=== PATIENT | male | born 1955 | race Caucasian/White ===

== ENCOUNTER 2016-06-15 00:12 | Observation (INO) | payer OTHER ==
[2016-06-15] MEDS ORDERED: ASPIRIN 81 MG CHEWABLE TAB PO ONE (00:21)
[2016-06-15] MEDS ORDERED: NS 1,000 ML IV ONE (00:21)
--- NOTE | 2016-06-15 00:21 | EDPHY ---
H & P Stated Complaint: CP x 1 1/2 hours HPI/ROS: HPI CHIEF COMPLAINT: Chest Pain HISTORY OF PRESENT ILLNESS: This patient very pleasant 60-year-old male, significant past medical history for AFib, not on any anticoagulation except baby aspirin daily, pacemaker due to bradycardia, presents emergency room with chest discomfort left side of his chest. He describes it as a pinching sensation he tells me that he was trying to go to sleep around 1045PM and developed this discomfort in his chest it has been constant since. No radiation pain specifically no arm pain jaw pain neck pain nausea vomiting. Denies shortness of breath denies pleuritic pain denies recent illness or cough. Past Medical History: Bradycardia, AFib Past Surgical History: Right-sided chest pacemaker Social History: Denies use of drugs alcohol tobacco products Family History: Significant for coronary artery disease and an MD in his dad age 38 ROS REVIEW OF SYSTEMS: A comprehensive 10 point review of systems is otherwise negative aside from elements mentioned in the history of present illness. Exam Constitutional triage nursing summary reviewed, vital signs reviewed, awake/ alert. Eyes normal conjunctivae and sclera, EOMI, PERRLA. HENT normal inspection, atraumatic, moist mucus membranes, no epistaxis, neck supple/ no meningismus, no raccoon eyes. Respiratory clear to auscultation bilaterally, normal breath sounds, no respiratory distress, no wheezing. Cardiovascular rate normal, regular rhythm, no murmur, no edema, distal pulses normal. Gastrointestinal soft, non-tender, no rebound, no guarding, normal bowel sounds, no distension, no pulsatile mass. Genitourinary no CVA tenderness. Musculoskeletal no midline vertebral tenderness, full range of motion, no calf swelling, no tenderness of extremities, no meningismus, good pulses, neurovascularly intact. Skin pink, warm, & dry, no rash, skin atraumatic. Neurologic awake, alert and oriented x 3, AAOx3, moves all 4 extremities equally, motor intact, sensory intact, CN II-XII intact, normal cerebellar, normal vision, normal speech. Psychiatric normal mood/affect. Heme/Lymph/Immune no lymphadenopathy. 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 Received a dose of nitroglycerin to see if this improves his chest discomfort. Re-evaluation: EKG interpretation by me on record in [employer] system. Impression time of EKG 12:30 a.m., this is this atrially paced rhythm rate of [address] depression noted in the anterior lateral leads. Otherwise no acute ST elevation when compared his EKG to his old EKGs very similar morphology specifically it looks very similar to the EKG done 11/19/2009. 0132: re-examination at this time is patient is resting comfortably no acute distress, he is chest pain-free. His troponin is negative. D-dimer negative. Chest x-ray unremarkable EKG does not show acute ischemia. He did feel much better after nitroglycerin. I also have noted that on cook helper dessert his heart rate has went down to 40. His pacemaker supposedly set at 60. I relayed this to the hospitalist service. They will evaluate his pacemaker as well. Patient be admitted to PCU due to pacemaker, bradycardia, chest discomfort. He is chest pain-free at this time. Improved with nitroglycerin. Source: Patient, EMS - Personal History Current Tetanus/Diphtheria Vaccine: Yes - Medical/Surgical History Hx Asthma: No Hx Chronic Respiratory Disease: No Hx Diabetes: No Hx Cardiac Disease: Yes Hx Renal Disease: No Hx Cirrhosis: No Hx Alcoholism: No Hx HIV/AIDS: No Hx Splenectomy or Spleen Trauma: No Other PMH: PMHx: Afib. PSHx: pacer, appy - Social History Smoking Status: Never smoked Constitutional: Initial Vital Signs Temperature (C) 36.4 C 06/15/16 00:14 Heart Rate 63 06/15/16 00:14 Respiratory Rate 16 06/15/16 00:14 Blood Pressure 146/95 H 06/15/16 00:14 O2 Sat (%) 95 06/15/16 00:14 O2 Delivery Mode Room Air Allergies/Adverse Reactions: No Known Allergies Allergy (Unverified 11/18/09 15:29) Home Medications: Medication Instructions Recorded ASPIRIN 06/15/16 Medical Decision Making - Data Points Laboratory Results: Laboratory Results 06/15/16 00:35 06/15/16 00:35 06/15/16 00:35 WBC 6.89 10^3/uL (3.80-9.50) RBC 5.23 10^6/uL (4.40-6.38) Hgb 16.5 g/dL (13.7-17.5) Hct 46.8 % (40.0-51.0) MCV 89.5 fL (81.5-99.8) MCH 31.5 pg (27.9-34.1) MCHC 35.3 g/dL (32.4-36.7) RDW 12.2 % (11.5-15.2) Plt Count 215 10^3/uL (150-400) MPV 9.2 fL (8.7-11.7) Neut % (Auto) 46.3 % (39.3-74.2) Lymph % (Auto) 38.8 % (15.0-45.0) [place] % (Auto) 12.9 % (4.5-13.0) Eos % (Auto) 1.5 % (0.6-7.6) Baso % (Auto) 0.4 % (0.3-1.7) Nucleat RBC Rel Count 0.0 % (0.0-0.2) Absolute Neuts (auto) 3.19 10^3/uL (1.70-6.50) Absolute Lymphs (auto) 2.67 10^3/uL (1.00-3.00) Absolute Monos (auto) 0.89 H 10^3/uL (0.30-0.80) Absolute Eos (auto) 0.10 10^3/uL (0.03-0.40) Absolute Basos (auto) 0.03 10^3/uL (0.02-0.10) Absolute Nucleated RBC 0.00 10^3/uL (0-0.01) Immature Gran % 0.1 % (0.0-1.1) Immature Gran # 0.01 10^3/uL (0.00-0.10) PT 12.5 SEC (12.0-15.0) INR 0.94 (0.83-1.16) APTT 29.5 SEC (23.0-38.0) D-Dimer < 0.27 ug/mLFEU (0.00-0.50) Sodium 143 mEq/L (134-144) Potassium 4.0 mEq/L (3.5-5.2) Chloride 107 mEq/L (97-110) Carbon Dioxide 24 mEq/l (22-31) Anion Gap 12 mEq/L (8-16) BUN 23 mg/dL (7-23) Creatinine 1.2 mg/dL (0.7-1.3) Estimated GFR > 60 Glucose 94 mg/dL (70-100) Calcium 10.0 mg/dL (8.5-10.4) Magnesium 2.1 mg/dL (1.6-2.3) Total Bilirubin 0.8 mg/dL (0.1-1.4) Conjugated Bilirubin 0.5 mg/dL (0.0-0.5) Unconjugated Bilirubin 0.3 mg/dL (0.0-1.1) AST 35 IU/L (17-59) ALT 41 IU/L (21-72) Alkaline Phosphatase 73 IU/L (38-126) Creatine Kinase 128 IU/L (0-224) CK-MB (CK-2) Fraction 2.33 ng/mL (0-3.19) Troponin I 0.016 ng/mL (0-0.034) NT-Pro-B Natriuret Pep 44 pg/mL (0-125) Total Protein 7.5 g/dL (6.3-8.2) Albumin 4.4 g/dL (3.5-5.0) Lipase 238.0 IU/L (23-300) Medications Given: Discontinued Medications Aspirin (Aspirin) 324 mg PO EDNOW ONE Stop: 06/15/16 00:22 Last Admin: 06/15/16 00:44 Dose: Not Given Sodium Chloride (Ns) 1,000 mls @ 0 mls/hr IV ONCE ONE PRN Reason: As Directed Stop: 06/15/16 00:22 Last Admin: 06/15/16 00:47 Dose: 1,000 mls Nitroglycerin (Nitrostat) 0.4 mg SL EDNOW ONE Stop: 06/15/16 00:37 Last Admin: 06/15/16 00:44 Dose: 1 tab Departure - Departure Disposition: [facility] Inpatient Acute Clinical Impression: Bradycardia Chest pain Qualifiers: Chest pain type: unspecified Qualifier Code: (R07.9) Chest pain, unspecified Condition: Good Referrals: IN STATE,. [Primary Care Provider] - As per Instructions
--- NOTE | 2016-06-15 00:33 | CPEKG ---
Heart Rate: 60 RR Interval: 1000 P-R Interval: 204 QRSD Interval: 88 QT Interval: 452 QTC Interval: 452 QRS [place]: 17 T Wave [place]: 44 EKG Severity - ABNORMAL ECG - EKG Impression: ATRIAL-PACED RHYTHM EKG Impression: MINIMAL ST DEPRESSION, ANTEROLATERAL LEADS Electronically Signed By: Adan Avalos 15-Jun-2016 07:16:34
[2016-06-15] MEDS ORDERED: NITROGLYCERIN 0.4 MG BTL SL ONE (00:36)
[2016-06-15 00:42] LABS: % IMMATURE GRANULYOCYTES 0.1 % (0.0-1.1); ABSOLUTE IMMATURE GRANULOCYTES 0.01 10^3/uL (0.00-0.10); ADD DIFF? NO; ADD MORPH? NO; ADD SCAN? NO; ATYPICAL LYMPHOCYTE FLAG 10 (0-99); FRAGMENT RBC FLAG 0 (0-99); HEMATOCRIT 46.8 % (40.0-51.0); HEMOGLOBIN 16.5 g/dL (13.7-17.5); LEFT SHIFT FLG 0 (0-99); LIPEMIA HEMOLYSIS FLAG 90 (0-99); MEAN CELL HEMOGLOBIN 31.5 pg (27.9-34.1); MEAN CELL HEMOGLOBIN CONCENTR. 35.3 g/dL (32.4-36.7); MEAN CELL VOLUME 89.5 fL (81.5-99.8); MEAN PLATELET VOLUME 9.2 fL (8.7-11.7); PLATELET CLUMPS FLAG 0 (0-99); PLATELET COUNT 215 10^3/uL (150-400); RED BLOOD CELL COUNT 5.23 10^6/uL (4.40-6.38); RED CELL DISTRIBUTION WIDTH 12.2 % (11.5-15.2)
[2016-06-15 00:56] LABS: INR 0.94 (0.83-1.16); PROTIME(PATIENT) 12.5 SEC (12.0-15.0)
[2016-06-15 00:57] LABS: ALANINE AMINOTRANSFERASE 41 IU/L (21-72); ALBUMIN 4.4 g/dL (3.5-5.0); ALKALINE PHOSPHATASE 73 IU/L (38-126); ANION GAP 12 mEq/L (8-16); ASPARTATE AMINOTRANSFERASE 35 IU/L (17-59); BILIRUBIN,TOTAL 0.8 mg/dL (0.1-1.4); BILIRUBIN-CONJUGATED 0.5 mg/dL (0.0-0.5); BILIRUBIN-UNCONJUGATED 0.3 mg/dL (0.0-1.1); CARBON DIOXIDE 24 mEq/l (22-31); CHLORIDE 107 mEq/L (97-110); CREATININE 1.2 mg/dL (0.7-1.3); GLOMERULAR FILTRATION RATE > 60; GLUCOSE 94 mg/dL (70-100); MAGNESIUM 2.1 mg/dL (1.6-2.3); SODIUM 143 mEq/L (134-144); TOTAL PROTEIN 7.5 g/dL (6.3-8.2)
[2016-06-15 01:06] LABS: APTT 29.5 SEC (23.0-38.0)
[2016-06-15 01:09] LABS: CREATINE KINASE-MB FRACTION 2.33 ng/mL (0-3.19); TROPONIN I 0.016 ng/mL (0-0.034)
[2016-06-15] MEDS ORDERED: ACETAMINOPHEN 325 MG TAB PO PRN (01:52)
[2016-06-15] MEDS ORDERED: NITROGLYCERIN 0.4 MG BTL SL PRN (01:52)
[2016-06-15] MEDS ORDERED: ONDANSETRON 4 MG/2 ML VIAL IVP PRN (01:52)
[2016-06-15] MEDS ORDERED: ONDANSETRON DISINTEGRATING 4 MG TAB PO PRN (01:52)
[2016-06-15 01:59] VITALS: PULSE 60
--- NOTE | 2016-06-15 02:25 | CPEKG ---
Heart Rate: 60 RR Interval: 1000 P-R Interval: 208 QRSD Interval: 86 QT Interval: 432 QTC Interval: 432 QRS Jack: 15 T Wave Jack: 26 EKG Severity - ABNORMAL ECG - EKG Impression: ATRIAL-PACED RHYTHM EKG Impression: LOW VOLTAGE IN FRONTAL LEADS Electronically Signed By: Adan Avalos 15-Jun-2016 07:16:34
--- NOTE | 2016-06-15 05:41 | PDGENHP ---
History and Physical - Chief Complaint chest pain - History of Present Illness patient is a 60-year-old male with history of sick sinus syndrome s/p PPM placement (2009) who presents to the ED complaining of left-sided chest pain. Patient states symptoms started just before going to sleep this evening, describes as a pinching type sensation in his left chest, nonradiating, not associated with lightheadedness, nausea, palpitations or shortness of breath. He has never experienced this type of pain before. He reports having eaten dinner at around 5 or 6:00 p.m., and then had another snack at around 10:00 p.m. just prior to bed, but he does not feel pain is related to heartburn or GERD type symptoms. In addition, patient does note that for the past 2 weeks or so he has been feeling dizziness with abrupt standing or with excessive physical exertion. He denies any associated chest pain, shortness of breath or palpitations. he also denies any recent fevers, chills, cough, congestion, nausea, vomiting, diarrhea. Upon arrival to the ED patient was afebrile hemodynamically stable. Labs were within normal limits, and stroke and D-dimer were both negative. EKG showed atrially paced rhythm without any evidence of ischemic changes. He was given aspirin and sublingual nitro and symptoms improved. He was then admitted to the hospital service for further management. History Information - Allergies/Home Medication List Allergies/Adverse Reactions: No Known Allergies Allergy (Unverified 11/18/09 15:29) Home Medications: ASPIRIN 06/15/16 [Last Taken Unknown] I have personally reviewed and updated: family history, medical history, social history, surgical history - Past Medical History Additional medical history: Sick sinus syndrome - Surgical History Additional surgical history: ppm placement. 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 Review of Systems ROS: 10pt was reviewed & negative except for what was stated in HPI & below Physical Exam Temp Pulse Resp BP Pulse Ox 36.6 C 60 18 130/85 H 93 06/15/16 01:58 06/15/16 02:54 06/15/16 02:54 06/15/16 02:54 02/07/17 02:54 Constitutional: no apparent distress, appears nourished, not in pain Eyes: PERRL, anicteric sclera, EOMI Ears, Nose, Mouth, Throat: moist mucous membranes, hearing normal, ears appear normal, no oral mucosal ulcers Cardiovascular: regular rate and rhythym, no murmur, rub, or gallop, pulses symmetric bilaterally, No JVD, No edema Peripheral Pulses: 2+: dorsalis-pedis (R), dorsalis-pedis (L) Respiratory: no respiratory distress, no rales or rhonchi, clear to auscultation Gastrointestinal: normoactive bowel sounds, soft, non-tender abdomen, no palpable masses Genitourinary: no bladder fullness, no bladder tenderness Skin: warm, normal color, no rashes or abrasions, no fluctuance, no induration, No mottled Musculoskeletal: full muscle strength, no muscle tenderness, normal joint ROM, no joint effusions Neurologic: AAOx3, sensation intact bilaterally, CN II-XII Intact, No weakness, No numbness Psychiatric: interacting appropriately, not anxious, not encephalopathic, thought process linear Lab Data & Imaging Review 06/15/16 00:35 06/15/16 00:35 WBC 6.89 10^3/uL (3.80-9.50) 06/15/16 00:35 RBC 5.23 10^6/uL (4.40-6.38) 06/15/16 00:35 Hgb 16.5 g/dL (13.7-17.5) 06/15/16 00:35 Hct 46.8 % (40.0-51.0) 06/15/16 00:35 MCV 89.5 fL (81.5-99.8) 06/15/16 00:35 MCH 31.5 pg (27.9-34.1) 06/15/16 00:35 MCHC 35.3 g/dL (32.4-36.7) 06/15/16 00:35 RDW 12.2 % (11.5-15.2) 06/15/16 00:35 Plt Count 215 10^3/uL (150-400) 06/15/16 00:35 MPV 9.2 fL (8.7-11.7) 06/15/16 00:35 Neut % (Auto) 46.3 % (39.3-74.2) 06/15/16 00:35 Lymph % (Auto) 38.8 % (15.0-45.0) 06/15/16 00:35 [place] % (Auto) 12.9 % (4.5-13.0) 06/15/16 00:35 Eos % (Auto) 1.5 % (0.6-7.6) 06/15/16 00:35 Baso % (Auto) 0.4 % (0.3-1.7) 06/15/16 00:35 Nucleat RBC Rel Count 0.0 % (0.0-0.2) 06/15/16 00:35 Absolute Neuts (auto) 3.19 10^3/uL (1.70-6.50) 06/15/16 00:35 Absolute Lymphs (auto) 2.67 10^3/uL (1.00-3.00) 06/15/16 00:35 Absolute Monos (auto) 0.89 10^3/uL (0.30-0.80) H 06/15/16 00:35 Absolute Eos (auto) 0.10 10^3/uL (0.03-0.40) 06/15/16 00:35 Absolute Basos (auto) 0.03 10^3/uL (0.02-0.10) 06/15/16 00:35 Absolute Nucleated RBC 0.00 10^3/uL (0-0.01) 06/15/16 00:35 Immature Gran % 0.1 % (0.0-1.1) 06/15/16 00:35 Immature Gran # 0.01 10^3/uL (0.00-0.10) 06/15/16 00:35 PT 12.5 SEC (12.0-15.0) 06/15/16 00:35 INR 0.94 (0.83-1.16) 06/15/16 00:35 APTT 29.5 SEC (23.0-38.0) 06/15/16 00:35 D-Dimer < 0.27 ug/mLFEU (0.00-0.50) 06/15/16 00:35 Sodium 143 mEq/L (134-144) 06/15/16 00:35 Potassium 4.0 mEq/L (3.5-5.2) 06/15/16 00:35 Chloride 107 mEq/L (97-110) 06/15/16 00:35 Carbon Dioxide 24 mEq/l (22-31) 06/15/16 00:35 Anion Gap 12 mEq/L (8-16) 06/15/16 00:35 BUN 23 mg/dL (7-23) 06/15/16 00:35 Creatinine 1.2 mg/dL (0.7-1.3) 06/15/16 00:35 Estimated GFR > 60 06/15/16 00:35 Glucose 94 mg/dL (70-100) 06/15/16 00:35 Calcium 10.0 mg/dL (8.5-10.4) 06/15/16 00:35 Magnesium 2.1 mg/dL (1.6-2.3) 06/15/16 00:35 Total Bilirubin 0.8 mg/dL (0.1-1.4) 06/15/16 00:35 Conjugated Bilirubin 0.5 mg/dL (0.0-0.5) 06/15/16 00:35 Unconjugated Bilirubin 0.3 mg/dL (0.0-1.1) 06/15/16 00:35 AST 35 IU/L (17-59) 06/15/16 00:35 ALT 41 IU/L (21-72) 06/15/16 00:35 Alkaline Phosphatase 73 IU/L (38-126) 06/15/16 00:35 Creatine Kinase 128 IU/L (0-224) 06/15/16 00:35 CK-MB (CK-2) Fraction 2.33 ng/mL (0-3.19) 06/15/16 00:35 Troponin I 0.016 ng/mL (0-0.034) 06/15/16 00:35 NT-Pro-B Natriuret Pep 44 pg/mL (0-125) 06/15/16 00:35 Total Protein 7.5 g/dL (6.3-8.2) 06/15/16 00:35 Albumin 4.4 g/dL (3.5-5.0) 06/15/16 00:35 Lipase 238.0 IU/L (23-300) 06/15/16 00:35 Visualized and Interpreted Chest x-ray results: Yes Chest X-Ray results: no infiltrate, normal Visualized and Interpreted EKG results: Yes EKG Interpretation: Positive for: normal sinsus rhythm ( Atrial paced, no st/t wave changes) Assessment & Plan Assessment: patient is a 60-year-old male with history of sick sinus syndrome S/P a ppm presents ED with complaint of acute onset left-sided chest pain. Plan: # chest pain patient's risk factors for cardiac chest pain include family history of early CAD in his father. Initial EKG and troponin are negative for evidence of ischemia. Patient reports last stress test was several years ago and normal. Will rule out ACS with serial troponins and EKGs, will interrogate patient's ppm to evaluate for any arrhythmias, and obtain stress test in a.m. Differential also includes GERD/gastritis. # dispo: admit to observation unit for acute chest pain. # full code
[2016-06-15 08:12] VITALS: RESP 19
--- NOTE | 2016-06-15 08:36 | DX ---
Portable Chest, 00 29 a.m. History: Chest pain Comparison: November 19, 2009 Findings: Lungs clear. Heart size is normal for portable technique. There is possibly mild pulmonary venous hypertension. There are no pleural effusions, Wal[place] B lines or pulmonary edema. A right chest wall pacer device and associated bipolar pacer leads remain in place. There are stable old healed le ft posterior rib fracture deformities. Impression: Possibly mild pulmonary venous hypertension. A routine PA and lateral chest would be bett er suited to evaluate the cardiothoracic equilibrium.
[2016-06-15] MEDS ORDERED: REGADENOSON 0.4 MG/5 ML SYR IVP ONE (10:48)
[2016-06-15 12:10] VITALS: BP 123/80; TEMP 98; O2SAT 97
--- NOTE | 2016-06-15 12:45 | NM ---
Nuclear Medicine Myocardial Perfusion Scan Clinical History: 60-year-old male admitted this morning with left-sided chest pain. He has a history of sick sinus syndrome, and had a pacemaker placed in 2009. The patient's first 2 serum troponin lev els were negative. A third level is currently pending. Rule out myocardial ischemia. Radiopharmaceutical: 11 mCi of IV technetium 99m sestamibi (rest portion), and 25.2 mCi of IV technet ium 99m sestamibi (stress portion). Medical Pharmaceutical: 0.4 mg of IV Lexiscan in 5 mL. Technique: After the respective rest and stress sequences, images were acquired tomographically and r econstructed along the standard cardiac axes. The study was gated and reviewed on the PACS computer w orkstation using [employer] [facility] software. Comparison Study: None. Findings: The post-stress and rest sequences demonstrate normal perfusion of the septum, anterior wal l, and the lateral wall; however, the inferior wall has fixed diminished attenuation, in part by diap hragmatic attenuation. There is no additional perfusion at rest to suggest myocardial ischemia. The l eft ventricular cavity size is normal, and contractility appears relatively normal. The computer gene rated LVEF is calculated at 56%. Impression: There is no scintigraphic evidence of myocardial ischemia (with the caveat that there is some diaphragmatic attenuation of the inferior wall). Contractility appears normal, with an LVEF of 5 6%. Results were discussed with Dr. Alejo Mckeon. A test result has been communicated to a licensed care provider and documented in the [employer] Critical Result system on 06/15/2016 12:33, Message ID [id number].
--- NOTE | 2016-06-15 13:32 | CPR ---
[f rep st] NONINVASIVE CARDIAC PROCEDURE REPORT DATE OF PROCEDURE: 06/15/2016 PROCEDURE: Lexiscan Stress Test. REASON FOR TEST: 1. Chest pain. 2. Family history of coronary artery disease. 3. Father with [place] at age 38. 4. Mild hypertension. FINDINGS: Resting EKG shows a regular atrial paced rhythm at a rate of 60. He is asymptomatic. Res ting blood pressure 124/84, resting heart rate 60, oxygen saturation 95%. STRESS PORTION LEXISCAN STRESS TEST: Lexiscan was injected rapidly at 10:51 a.m., followed by saline flush. Cardiolite was then injected, followed by saline flush protocol. He did experience flushing and chest pressure. Blood pressure 112/80, heart rate 73-98. Oxygen saturation 98%. RECOVERY: He spontaneously recovered. Caffeine was given, and his chest pressure and flushing resol karen. Resting blood pressure 122/80. Recovery heart rate 98, oxygen saturation 98. At this time, he is asymptomatic. He is stable for imaging. /[id number]/MODL
--- NOTE | 2016-06-15 16:17 | PDDCSUM ---
Discharge Summary Discharge Summary: DISCHARGE DIAGNOSES: 1. CHEST PAIN AT REST, RESOLVED 2. RULED OUT [place] 3. NO CHF 4. NO ABNORMALITY ON MYOCARD. PERFUSION IMAGING 5. PACEMAKER COMPLICATIONS: NONE HOSPITAL COURSE: No recurrence of presenting pain. No arrythmia or chf. No other new symptoms. All troponins negative and stress testing w terra rene. He had numerous questions about his pacer which were answered but I do not have results of his interrogations; he is referred to Dr Metcalf for further help with his questions. MEDICATIONS CHANGES: NONE
[2016-06-16] MEDS ORDERED: CHOLECALCIFEROL VIT D3 1,000 UNITS TAB PO SCH (09:00)
[2016-06-16] MEDS ORDERED: ASPIRIN 81 MG CHEWABLE TAB PO SCH (09:00)
== END 2016-06-15 15:42 | disposition home or self-care (01) ==
LOC: F1N 02:26
PROVIDERS: ADMIT Internal Medicine; ATTEND Internal Medicine
DX: R07.9 Chest pain, unspecified (principal); I49.5 Sick sinus syndrome; Z95.0 Presence of cardiac pacemaker; I48.91 Unspecified atrial fibrillation; I10 Essential (primary) hypertension; Z79.82 Long term (current) use of aspirin; Z82.49 Family history of ischemic heart disease and other diseases of the circulatory system
CPT/HCPCS: 71010; 78452; 93005; 93017; A9500; G0378; J2785

== ENCOUNTER → 2017-04-18 | Outpatient (CLI) | payer OTHER | LOC: FIMAGING 13:49 | PROVIDERS: ATTEND Internal Medicine Cardiovascular Disease | DX: Z95.0 Presence of cardiac pacemaker (principal) ==

== ENCOUNTER → 2017-08-30 | Day surgery (SDC) | payer OTHER ==
[~2017-08-30] MED LIST: ASPIRIN 81 MG CHEWABLE TAB PO SCH; BACITRACIN IRRIGATION/NS 50,000 UNITS/1,000 ML BTL IRR ONE; BUPIVACAINE 0.5% 30 ML SDV ONE; CHOLECALCIFEROL VIT D3 1,000 UNITS TAB PO SCH; DIAZEPAM 5 MG TAB PO ONE; LIDOCAINE 1% 300 MG/30 ML SDV ONE; MIDAZOLAM 2 MG/2 ML VIAL ONE; NS 1,000 ML IV ONE; ceFAZolin 2 GM/SWFI 2 GM/20 ML SYR IVP ONE; diphenhydrAMINE 25 MG CAP PO ONE; fentaNYL 100 MCG/2 ML INJ ONE
--- NOTE | 2017-08-30 09:25 | CPEKG ---
Heart Rate: 54 RR Interval: 1111 P-R Interval: 196 QRSD Interval: 88 QT Interval: 460 QTC Interval: 436 QRS [place]: 69 T Wave [place]: 39 EKG Severity - ABNORMAL ECG - EKG Impression: ATRIAL-PACED RHYTHM EKG Impression: UNCHANGED IN COMPARISON TO PRIOR Electronically Signed By: Daniel Wong 30-Aug-2017 09:29:43
[2017-08-30 09:46] LABS: PLATELET COUNT 201 10^3/uL (150-400)
[2017-08-30 09:59] LABS: INR 0.97 (0.83-1.16); PROTIME(PATIENT) 13.1 SEC (12.0-15.0)
--- NOTE | 2017-08-30 12:23 | PDGENHP ---
History & Physical Chief Complaint: pacemaker generator is at travon Relevant Physical Exam: [id number] rrr cta ao3 Cardiorespiratory Assessment: RA lead is normal. RV lead is suboptimal, threshold 3.5 V 1.5 ms. He paces RV 5% of the time. No unipolar capture. We discussed pros and cons of new RV lead vs. generator change alone. PM was implanted for sick sinus syndrome. Will proceed with generator change only. He understands that he may need a new RV lead earlier than next generator change , we may elect to pace him AAI at that time.
--- NOTE | 2017-08-30 12:23 | PDPROPOC ---
Sedation Plan of Care Sedation Plan of Care: vital signs stable, mental status noted, patient educated of risks, benefits, alternatives, patient can tolerate sedation ASA Classification: ASA 1 Planned drugs: fentanyl, midazolam Mallampati Score: Class 1 Mallampati Reference Image: Patient passed 3-3-2 rule?: Yes
--- NOTE | 2017-08-30 13:56 | EPPROC ---
Electrophysiology Procedure Note: PROCEDURE PERFORMED: 1. AV Pacemaker generator change INDICATION: Pacemaker generator at ANGELA Bradycardia PROCEDURE NOTE: Patient presented to the cardiac catheterization laboratory in a fasting, postabsorptive state. EP RN administered sedation The R infraclavicular area was prepped and draped in the usual sterile fashion. Lidocaine plus bupivacaine was used for local anesthesia. Using a combination of blunt and sharp dissection and electrocautery, the dissection was carried down to the prepectoral fascia and the existing pacemaker pocket was opened. The pacemaker generator was disconnected from the leads and the lead thresholds and impedance were checked. The pacemaker pocket was copiously irrigated with antibiotic solution. The pocket was again inspected for any bleeding. The leads were attached to the pacemaker securely. The pacemaker was inserted into the pocket and secured in place with a nonabsorbable suture. RV lead is suboptimal but functional with good sensing and impedance. Prior to procedure we discussed this and patient & I opted not to add an additional RV lead at this time. RV pacing is 5% of the time. The pacemaker pocket was closed in 3 layers with absorbable monocryl sutures and shayla. Appropriate dressing was applied. The patient left the cardiac catheterization laboratory in stable condition. Serial Numbers: 1. Device SJM Assurity MRI SN [id number] 2. Atrial Lead Medtronic 4076-45 [id number] 3. Ventricular Lead Medtronic 4076-52 [id number] Stimulation Thresholds & Impedance Measurements: 1. Atrial Lead P 1.7 mV 480 ohm 0.5 V 0.5 ms 2. Ventricular Lead R 10.2 mV 649 ohm 3.2 V @ 1.5 ms Cirilo Pacing Parameters 1. Pacing mode DDDR 2. Lower rate 60 ppm 3. Upper tracking rate 130 ppm 4. Upper sensor rate 130 ppm Patient Problems: Problems Problem Status Onset Bradycardia Acute Chest pain Acute
--- NOTE | 2017-08-30 15:03 | CPEKG ---
Heart Rate: 66 RR Interval: 909 P-R Interval: 184 QRSD Interval: 84 QT Interval: 436 QTC Interval: 457 QRS [place]: 42 T Wave [place]: 40 EKG Severity - ABNORMAL ECG - EKG Impression: ATRIAL-PACED RHYTHM EKG Impression: LOW VOLTAGE IN FRONTAL LEADS EKG Impression: BORDERLINE T WAVE ABNORMALITIES Electronically Signed By: Daniel Wong 30-Aug-2017 17:21:51
== END | disposition home or self-care (01) ==
LOC: FCATH 09:00
PROVIDERS: ATTEND Internal Medicine Cardiovascular Disease
PROC: 0JH606Z Insertion of Pacemaker, Dual Chamber into Chest Subcutaneous Tissue and Fascia, Open Approach (ICD-10-PCS; principal; 2017-08-30)
PROC: 0JPT0PZ Removal of Cardiac Rhythm Related Device from Trunk Subcutaneous Tissue and Fascia, Open Approach (ICD-10-PCS; principal; 2017-08-30)
DX: Z45.010 Encounter for checking and testing of cardiac pacemaker pulse generator [battery] (principal); I49.5 Sick sinus syndrome; I48.91 Unspecified atrial fibrillation; E78.5 Hyperlipidemia, unspecified; Z79.82 Long term (current) use of aspirin; Z82.49 Family history of ischemic heart disease and other diseases of the circulatory system
CPT/HCPCS: C1785; J0690; J2250; J3010